=== PATIENT | female | born 1955 | race Caucasian/White ===

== ENCOUNTER 2017-08-02 18:14 | Emergency (ER) | payer SELFPAY ==
[~2017-08-02] VITALS: Ht 165.1 cm; Wt 72.0 kg
[~2017-08-02 18:14] MED LIST: ACYCLOVIR200 MG PO; ALPRAZOLAM PO; AMLODIPINE BESYL5 MG PO; ANEXSIA 7.5/3251 TA1 PO; ASPIR-TRIN325 MG PO; ASPIRIN PO; ASPIRIN325 M1 PO; ASPIRIN81 M1 PO; ATIVAN0.5 MG PO; AUGMENTIN875 M1 PO; BENTYL10 MG PO; CALCARB 600 W-V1 TAB PO; CALCIUM 600 + D1 TA1 PO; CALCIUM 600 + D1 TAB PO; CARVEDILOL6.25 MG PO; CIPRO PO; CIPRO250 MG PO; CLEOCIN PO; COLACE PO; COMBIVENT U/D3 ML INH; COREG3.125 MG PO; COREG6.25 MG PO; CRESTOR PO; DIARRHEA MED; DICYCLOMINE HCL20 MG PO; ENDOCET 10-3251 TAB PO; ENDOCET 5-3251 EACH PO; FENTANYL1 EAC1 TD; FENTANYL1 PATCH .1 TD; FISH OIL 1,0001 CAP PO; FLAGYL PO; FLEXERIL PO; FUROSEMIDE40 MG PO; GABAPENTIN600 MG PO; HELIDAC KIT PO; HYDROCODON-ACE1 EAC5 PO; K-DUR20 ME1 PO; KCL PO; KEFLEX; KEPPRA500 MG PO; LASIX PO; LEVAQUIN PO; LISINOPRIL PO; LISINOPRIL-HCTZ1 T14 PO; LISINOPRIL20 MG PO; LORAZEPAM1 MG PO; LORTAB 5/500 TA1 TA1 PO; LORTAB 7.5-5001 TAB PO; LOVAZA1 G PO; MACROBID 100 M100 MG PO; MACROBID100 MG PO; MAG-OX 400400 M1 PO; MAG-OXIDE400 MG PO; MAGNESIUM OXID200 MG PO; MAGNESIUM27 MG PO; MAGNESIUM400 MG PO; MEDROL PO; METHADONE HCL10 MG PO; METHADONE PO; MS CONTIN PO; NEURONTIN PO; NEURONTIN600 MG PO; NEXIUM PO; NITROGLYCERIN0.4 MG SL; NITROGYLCERIN SUBLINGUAL; NITROQUICK0.4 MG SL; NITROSTAT0.4 MG SL; NORVASC PO; OMEGA 3 FISH OI1 CAP PO; OMEGA-31000 M1 PO; OXYCODONE15 M1 PO; PAIN RELIEF325 M1 PO; PERCOCET 10/325MG PO; PERCOCET 5-3251 TAB PO; PERCOCET10 PO; PERCOCET5/325 PO; PERCOCET7.5 PO; PHENERGAN PO; PHENERGAN25 MG; PHENERGAN25 MG PO; PLAVIX PO; PRILOSEC PO; PRILOSEC40 MG PO; PROLIA; PROTONIX PO; PYRIDIUM PO; RANEXA500 MG PO; REGLAN PO; SPIRIVA18 MCG INH; SYMBICORT INH; TEGRETOL PO; TORADOL10 MG PO; VICODIN 5/1 TAB 5/50 PO; VICODIN 5/500 T1 TAB PO; VITAMIN B12-FO1 EACH PO; VITAMIN D 22000 UNIT PO; VITAMIN D32000 UNIT PO; VITAMIN D50000 UNIT PO; XANAX0.5 MG PO; XANAX1 MG PO; ZESTRIL40 MG PO; ZOFRAN PO; [UNRECOGNIZED DRUG - REMARK] PO
== END 2017-08-02 21:59 | disposition left against medical advice (07) ==
LOC: SED 18:14
DX: Z53.21 Procedure and treatment not carried out due to patient leaving prior to being seen by health care provider (principal)

== ENCOUNTER 2017-08-03 09:38 | Emergency (ER) | payer OTHER ==
[~2017-08-03] VITALS: Ht 165.1 cm; Wt 68.0 kg
[2017-08-03 10:56] LABS: BASOPHIL% 0.5 % (0-2.5); EOSINOPHIL# 0.1 X10e3 (0-0.7); EOSINOPHIL% 0.9 % (0.0-7.0); HEMATOCRIT 34.9 % (35.0-45.0); LYMPHOCYTE# 2.6 X10e3 (1.0-3.5); LYMPHOCYTE% 40.7 % (17.0-45.0); MEAN CELL VOLUME 94.1 FL (83-96); MEAN CORPUSCULAR HEMOGLOBIN 32.3 PG (28-34); MEAN CORPUSCULAR HGB CONC 34.3 g/dL (30-36); MEAN PLATELET VOLUME 9.1 FL (6.5-11.5); MONOCYTE# 0.8 X10e3 (0-1.0); MONOCYTE% 11.8 % (3.0-12.0); NEUTROPHIL% 46.1 % (40-75); PLATELET COUNT 219 X10e3 (140-420); RED BLOOD COUNT 3.71 X10e (3.90-5.30); RED CELL DISTRIBUTION WIDTH 14.7 % (11.0-15.5); WHITE BLOOD COUNT 6.4 X10e3 (4.0-10.5)
[2017-08-03 11:04] LABS: DIFF IND NO
[2017-08-03 11:31] LABS: BUN/CREATININE RATIO 15.23; CALCIUM SERUM 9.5 mg/dL (8.4-10.2); CREATININE SERUM 2.1 mg/dL (0.6-1.4); GLOM FILT RATE Estimated 24.3 mL/min (>60)
== END 2017-08-03 11:40 | disposition left against medical advice (07) ==
LOC: CED 09:38
PROVIDERS: Emergency Medicine
DX: M54.5 Low back pain (principal); N17.9 Acute kidney failure, unspecified; G89.29 Other chronic pain; I10 Essential (primary) hypertension; J44.9 Chronic obstructive pulmonary disease, unspecified; F17.200 Nicotine dependence, unspecified, uncomplicated; Z88.2 Allergy status to sulfonamides; Z88.5 Allergy status to narcotic agent; Z88.8 Allergy status to other drugs, medicaments and biological substances
CPT/HCPCS: 36415; 80048; 85025; 96374; 99283; J2405